=== PATIENT | female | born 1955 | race Caucasian/White ===

== ENCOUNTER → 2018-09-04 | Day surgery (SDC) | payer OTHER ==
[~2018-09-04] MED LIST: Lactated Ringers 1,000 ML IV SCH; Propofol 200 MG/20 ML SDV IV ONE; Sodium Chloride 0.9% 1,000 ML IV SCH
--- NOTE | 2018-09-04 11:20 | OR ---
DATE OF OPERATION: 09/04/2018 PREOPERATIVE DIAGNOSIS: GASTROESOPHAGEAL REFLUX DISEASE WITH EPIGASTRIC PAIN. POSTOPERATIVE DIAGNOSIS: GASTROESOPHAGEAL REFLUX DISEASE WITH EPIGASTRIC PAIN. SURGEON: Shaun Lewis MD PROCEDURE: 1. EGD WITH BIOPSIES X4, TERRI. 2. FORCEPS POLYP REMOVAL X1. ANESTHESIA: MAC via TRANSPORTATION ATTENDANT. COMPLICATIONS: None. SPECIMEN: 1. Antral TERRI. 2. Adenomatous fundal polyp. 3. Distal esophageal/EG junction biopsies x4. FINDINGS: 1. Full-length EGD. 2. Gastroesophageal reflux disease with esophagitis in EG junction. 3. Adenomatous polyp, upper fundus. RECOMMENDATIONS: Medical followup with Dr. Zabala, close followup after path reports. INDICATIONS: The patient had been having some ongoing issues with reflux and epigastric pain. Dr. Zabala sent her for diagnostic EGD. DESCRIPTION OF PROCEDURE: The patient was prepped and draped, placed in the left lateral decubitus position. A lubricated Olympus gastroscope was inserted over a bit, advanced to cricopharyngeus area, and easily intubated into the esophagus. The esophageal lining was benign until its most distal portion. Around 38 cm, the Z-line was crisp and sharp. The patient did have some inflammatory changes and thickening right at the Z-line, one was very friable and bulky, looked worrisome in that regard. We were able to pass by this area advancing the stomach through the pylorus into the 2nd portion of the duodenum. This and the duodenal bulb were unremarkable. The scope was brought back into the stomach and retroflexed. The upper fundus and cardia essentially were benign other than a small adenomatous polyp in the upper fundus, it was removed easily with 2 forceps biopsies in its entirety. The rest of the fundus and antrum were benign. No signs of other polyps, mass, ulceration, bleeding sites, or peptic ulcer disease. A CLOtest was obtained. The scope was then brought up again to the distal portion the esophagus. Four separate biopsies of the thickening near the EG junction were accomplished, 2 excellent biopsies at the area of thickening at its most prominent portion. The patient tolerated the procedure well. Air was suctioned from the stomach, the scope was removed without complication. WOOD/BRYCE /[id number] cc: Hector Zabala [address] [place] [address]
== END ==
LOC: CC.SDS 08:18
PROVIDERS: ATTEND Family Medicine
DX: K31.7 Polyp of stomach and duodenum (principal); K21.0 Gastro-esophageal reflux disease with esophagitis; K29.70 Gastritis, unspecified, without bleeding; I10 Essential (primary) hypertension; E78.5 Hyperlipidemia, unspecified; M19.90 Unspecified osteoarthritis, unspecified site; E66.9 Obesity, unspecified; F41.9 Anxiety disorder, unspecified; Z68.32 Body mass index [BMI] 32.0-32.9, adult; Z79.899 Other long term (current) drug therapy
CPT/HCPCS: 87081; J2704; J7120

== ENCOUNTER → 2018-10-02 | Day surgery (SDC) | payer OTHER ==
[~2018-10-02] MED LIST changes: -Sodium Chloride 0.9% 1,000 ML IV SCH
--- NOTE | 2018-10-02 11:51 | OR ---
DATE OF OPERATION: 10/02/2018 PREOPERATIVE DIAGNOSIS: POSITIVE COLOGUARD. POSTOPERATIVE DIAGNOSIS: POSITIVE COLOGUARD. SURGEON: Shaun Lewis MD PROCEDURE: FULL-LENGTH COLONOSCOPY WITH FORCEPS REMOVAL OF 3 SMALL SESSILE POLYPS. ANESTHESIA: MAC via DRILLER AND BROACHER. COMPLICATIONS: None. SPECIMEN: Three very small 2 to 3 mm flat sessile polyps. FINDINGS: 1. Full-length colonoscopy. 2. Sessile polyps x3, all 2 to 3 mm. RECOMMENDATIONS: Followup colonoscopy in 5 years. INDICATIONS: The patient had a positive Cologuard at recent physical. She was sent for diagnostic colonoscopy. DESCRIPTION OF PROCEDURE: The patient was prepped and draped, placed in the left lateral decubitus position. A lubricated Olympus colonoscope was inserted and with relative ease advanced to the cecum. The patient was pretty tortuous, but advances quite safely and easily. We were able to directly visualize the ileocecal valve and appendiceal orifice. The bowel prep was excellent. Upon withdrawal of the scope, the cecum and ascending colon were completely benign. At the most distal portion of the transverse colon, the patient had a very small, flat, slightly raised, maybe 2 mm flat sessile polyp removed in its entirety with forceps. There was a 2nd similar-type polyp in the sigmoid area and a 3rd one even smaller in the rectosigmoid region. Throughout the rest of the left colon, I found no other vascular abnormality, signs of colitis. No diverticula and certainly no worrisome polyps, masses, lesions, or otherwise. The rectal vault was benign. Retroflexion of the scope in the rectum showed no anal lesions. Air was suctioned, scope removed without complication. WOOD/BRYCE /[id number] cc: Hector Zabala MD [address] [id number]
== END ==
LOC: CC.SDS 06:44
PROVIDERS: ATTEND Family Medicine
DX: K63.5 Polyp of colon (principal); K63.89 Other specified diseases of intestine; I10 Essential (primary) hypertension; E78.5 Hyperlipidemia, unspecified; R35.1 Nocturia; R53.83 Other fatigue; R63.5 Abnormal weight gain; M19.90 Unspecified osteoarthritis, unspecified site; Z79.899 Other long term (current) drug therapy
CPT/HCPCS: 45380; J2704; J7120